=== PATIENT | female | born 2005 | race African-American/Black ===

== ENCOUNTER 2024-05-04 10:01 | Inpatient (IN) | payer OTHER, MEDICAID ==
[2024-05-04] VITALS (22 sets, daily range): BP systolic 104–122; BP diastolic 56–82; PULSE 120–138; RESP 17–31; TEMP 35.9–37.3; O2SAT 93–100
[~2024-05-04] VITALS: Ht 154.9 cm; Wt 56.7 kg
[2024-05-04] MEDS: SODIUM CHLORIDE 0.9% 1,000 ML IV ONE ×2 (10:39→11:45)
[2024-05-04 11:12] LABS: BG BASE EXCESS -30.9 mmol/L (-2.0-3.0); BG CARBOXYHEMOGLOBIN 0.5 % (0.5-1.5); BG DEOXYHEMOGLOBIN 1.7 % (0.0-5.0); BG HCO3 ACT 2.2 mmol/L (21.0-28.0); BG METHEMOGLOBIN 0.4 % (0.5-1.5); BG OXYGEN SATURATION 98.3 % (94.0-98.0); BG OXYHEMOGLOBIN 97.4 % (94.0-98.0); BG PCO2 13.6 mmHg (32.0-45.0); BG PH 6.833 (7.350-7.450); BG PO2 142.1 mmHg (83.0-108.0); BG SAMPLE SITE RIGHT RADIAL; BG TOTAL HEMOGLOBIN 14.7 g/dL (12.0-16.0); BG VENT MODE ROOM AIR
[2024-05-04 11:20] LABS: CHLORIDE 85 mEq/L (98-107)
[2024-05-04 11:22] LABS: HEMATOCRIT. 51.3 % (36.0-48.0); HEMOGLOBIN. 13.3 g/dL (12.0-16.0); MEAN CORPUSCULAR HEMOGLOBIN 27.6 pg (28.0-32.0); MEAN CORPUSCULAR HGB CONC 25.9 g/dL (31.0-37.0); MEAN CORPUSCULAR VOLUME 106.4 fL (81.0-99.0); MEAN PLATELET VOLUME 10.9 fl (7.4-10.4); PLATELET 290 x1000/uL (130-400); RED BLOOD CELL COUNT 4.82 mill/uL (4.2-5.4); RED CELL DISTRIBUTION WIDTH 16.2 % (11.6-14.6); WHITE BLOOD COUNT 33.7 x1000/uL (4.5-11.0)
[2024-05-04 11:25] LABS: DIFFERENTIAL COMMENT 1
[2024-05-04] MEDS ORDERED: VANCOMYCIN 1G PREMIX 200 ML IV ONE (11:30)
[2024-05-04] MEDS: SODIUM CHLORIDE 0.9% (SEPSIS BOLUS) IV ONE (11:45)
[2024-05-04 11:51] LABS: HCG SCREEN NEGATIVE
[2024-05-04 12:08] LABS: SODIUM 122 mEq/L (136-145)
[2024-05-04 12:09] LABS: BETA HYDROXYBUTYRATE 12.6 mMol/L (0.0-0.3); CALCIUM 9.4 mg/dL (8.7-10.4); CREATININE 2.6 mg/dL (0.6-1.0); TROPONIN I HIGH SENSITIVITY 8 ng/L (3.0-34); UREA NITROGEN BLOOD 26 mg/dL (9-23)
[2024-05-04 12:11] LABS: POTASSIUM 7.3 mEq/L (3.5-5.1)
[2024-05-04 12:12] LABS: CARBON DIOXIDE < 10 mEq/L (21-32); GLUCOSE 954 mg/dL (70-105)
[2024-05-04] MEDS ORDERED: BLOOD SUGAR DIAGNOSTIC STRIP TEST PRN (12:30)
[2024-05-04] MEDS ORDERED: DEXTROSE 50% WATER 50ML SYRINGE IV PRN (12:30)
[2024-05-04] MEDS: BLOOD SUGAR DIAGNOSTIC STRIP TEST SCH ×2 (12:30→18:20)
[2024-05-04] MEDS: PIPERACILLIN/TAZO 3.375G/50ML 50 ML IV ONE (12:42)
[2024-05-04] MEDS ORDERED: INSULIN REGULAR 100U/100ML PMX 100 ML IV SCH (13:15)
[2024-05-04 13:27] LABS: ANISOCYTOSIS 1+; PLATELET ESTIMATE NORMAL
[2024-05-04] MEDS: SODIUM BICARBONATE 100 MEQ in SODIUM CHLORIDE 0.45% 900 ML IV SCH (13:35)
[2024-05-04] MEDS: INSULIN REGULAR (HUMULIN R) 1000UNITS/10ML VIAL IV NR (13:50)
[2024-05-04] MEDS: SODIUM BICARBONATE 8.4% 50MEQ/50ML SYR IV NR (13:51)
[2024-05-04] MEDS: INSULIN REGULAR 100U/100ML PMX 100 ML IV SCH (14:27)
[2024-05-04] MEDS: DEXT 5%/0.9% NACL 1,000 ML IV SCH (14:28)
[2024-05-04] MEDS ORDERED: DOCUSATE SODIUM 100MG CAPSULE PO PRN (16:00)
[2024-05-04] MEDS ORDERED: ACETAMINOPHEN 325MG TABLET PO PRN (16:00)
[2024-05-04] MEDS ORDERED: IPRATROPIUM/ALBUTEROL 0.5-3(2.5)MG/3ML NEB HHN PRN (16:00)
[2024-05-04] MEDS: SODIUM CHLORIDE 0.9% 1,000 ML IV SCH (16:50)
[2024-05-04] MEDS: VANCOMYCIN 1.5GM/250ML IV NR (16:51)
[2024-05-04 18:49] LABS: BG BASE EXCESS -19.1 mmol/L (-2.0-3.0); BG CARBOXYHEMOGLOBIN 0.3 % (0.5-1.5); BG DEOXYHEMOGLOBIN 2.2 % (0.0-5.0); BG FRACTION INSPIRED OXYGEN 21; BG HCO3 ACT 6.1 mmol/L (21.0-28.0); BG METHEMOGLOBIN 0.3 % (0.5-1.5); BG OXYGEN SATURATION 97.8 % (94.0-98.0); BG OXYHEMOGLOBIN 97.2 % (94.0-98.0); BG PCO2 14.7 mmHg (32.0-45.0); BG PH 7.234 (7.350-7.450); BG PO2 96.8 mmHg (83.0-108.0); BG SAMPLE SITE RIGHT RADIAL; BG TOTAL HEMOGLOBIN 11.7 g/dL (12.0-16.0); BG VENT MODE ROOM AIR
[2024-05-04 18:53] LABS: CHLORIDE 105 mEq/L (98-107); POTASSIUM 4.7 mEq/L (3.5-5.1); SODIUM 138 mEq/L (136-145)
[2024-05-04 18:54] LABS: CALCIUM 8.1 mg/dL (8.7-10.4)
[2024-05-04 18:59] LABS: UREA NITROGEN BLOOD 26 mg/dL (9-23)
[2024-05-04 19:01] LABS: PHOSPHORUS 3.1 mg/dL (2.5-4.9)
[2024-05-04 19:04] LABS: CARBON DIOXIDE < 10 mEq/L (21-32); CREATININE 1.8 mg/dL (0.6-1.0); GLUCOSE 405 mg/dL (70-105)
[2024-05-04 19:47] LABS: BASOPHILS % 1.3 % (0.0-2.0); DIFFERENTIAL COMMENT 0; EOSINOPHILS % 0.7 % (0.0-5.0); HEMATOCRIT. 39.4 % (36.0-48.0); HEMOGLOBIN. 12.3 g/dL (12.0-16.0); LYMPHOCYTES % 21.3 % (20.0-50.0); MEAN CORPUSCULAR HEMOGLOBIN 27.7 pg (28.0-32.0); MEAN CORPUSCULAR HGB CONC 31.2 g/dL (31.0-37.0); MEAN CORPUSCULAR VOLUME 88.8 fL (81.0-99.0); MEAN PLATELET VOLUME 10.4 fl (7.4-10.4); MONOCYTES % 5.7 % (2.0-8.0); PLATELET 193 x1000/uL (130-400); RED BLOOD CELL COUNT 4.43 mill/uL (4.2-5.4); RED CELL DISTRIBUTION WIDTH 14.8 % (11.6-14.6); WHITE BLOOD COUNT 15.6 x1000/uL (4.5-11.0)
[2024-05-04 20:30] LABS: CHLORIDE 106 mEq/L (98-107); SODIUM 139 mEq/L (136-145)
[2024-05-04 20:31] LABS: CALCIUM 8.4 mg/dL (8.7-10.4)
[2024-05-04 20:36] LABS: CREATININE 1.9 mg/dL (0.6-1.0); GLUCOSE 216 mg/dL (70-105); UREA NITROGEN BLOOD 22 mg/dL (9-23)
[2024-05-04 20:38] LABS: PHOSPHORUS 1.9 mg/dL (2.5-4.9)
[2024-05-04] MEDS: PIPERACILLIN/TAZO 3.375G/50ML IV SCH (20:51)
[2024-05-04 20:59] LABS: CARBON DIOXIDE < 10 mEq/L (21-32)
[2024-05-04] MEDS ORDERED: PIPERACILLIN/TAZO 3.375G/100ML 100 ML IV SCH (21:00)
[2024-05-04] MEDS: KCL 20MEQ/100ML PREMIX 100 ML IV PRN (23:11)
[2024-05-04] MEDS: MAGNESIUM 2 G PREMIX 50 ML IV PRN (23:12)
[2024-05-05] VITALS (53 sets, daily range): BP systolic 107–151; BP diastolic 61–107; PULSE 108–124; RESP 13–32; TEMP 37.1–37.3; O2SAT 97–100
[2024-05-05] MEDS: SODIUM PHOSPHATE 15 MMOL in SODIUM CHLORIDE 0.9% 245 ML IV PRN (00:43)
[2024-05-05 04:31] LABS: CHLORIDE 112 mEq/L (98-107); POTASSIUM 4.2 mEq/L (3.5-5.1); SODIUM 141 mEq/L (136-145)
[2024-05-05 04:32] LABS: CALCIUM 7.9 mg/dL (8.7-10.4); CARBON DIOXIDE 15 mEq/L (21-32)
[2024-05-05 04:37] LABS: CREATININE 1.8 mg/dL (0.6-1.0); GLUCOSE 199 mg/dL (70-105); UREA NITROGEN BLOOD 24 mg/dL (9-23)
[2024-05-05 04:39] LABS: PHOSPHORUS 1.9 mg/dL (2.5-4.9)
[2024-05-05 04:47] LABS: CLARITY URINE CLEAR (CLEAR); COLOR URINE YELLOW (YELLOW); GLUCOSE URINE 3+ (NEGATIVE); KETONES URINE 4+ (NEGATIVE); LEUKOCYTE ESTERASE URINE TRACE (NEGATIVE); NITRITE URINE NEGATIVE (NEGATIVE); OCCULT BLOOD URINE 2+ (NEGATIVE); PH URINE 5.5 (4.5-8.0); PROTEIN URINE 2+ (NEGATIVE); UROBILINOGEN URINE 0.2 E.U./dL (0.2-1.0)
[2024-05-05 05:17] LABS: *AMPHETAMINES SCREEN URINE NEGATIVE (NEGATIVE); *BENZODIAZEPINES SCREEN URINE NEGATIVE (NEGATIVE)
[2024-05-05 05:18] LABS: *BARBITURATES SCREEN URINE NEGATIVE (NEGATIVE); *COCAINE SCREEN URINE NEGATIVE (NEGATIVE); CANNABINOID URINE SCREEN NEGATIVE (NEGATIVE); METHADONE URINE SCREEN NEGATIVE (NEGATIVE); OPIATES URINE SCREEN NEGATIVE (NEGATIVE); PHENCYCLIDINE URINE SCREEN NEGATIVE (NEGATIVE)
[2024-05-05 05:19] LABS: ECSTASY MDMA SCREEN URINE NEGATIVE (NEGATIVE)
[2024-05-05 07:05] LABS: SQUAMOUS EPITHELIAL CELL URINE FEW /lpf (RARE/1+)
[2024-05-05 07:07] LABS: RBC URINE 0-2 /hpf (0-2)
[2024-05-05 07:09] LABS: AMORPHOUS SEDIMENT URINE 1+ /lpf
[2024-05-05 07:10] LABS: BACTERIA URINE TRACE
[2024-05-05] MEDS ORDERED: LIDOCAINE HCL 1% 10 MG/ML 10ML VIAL ONE (08:04)
[2024-05-05 10:48] LABS: POTASSIUM 4.1 mEq/L (3.5-5.1)
[2024-05-05 10:50] LABS: CALCIUM 7.8 mg/dL (8.7-10.4)
[2024-05-05 10:54] LABS: CREATININE 1.9 mg/dL (0.6-1.0)
[2024-05-05] MEDS: FLUCONAZOLE 150MG TABLET PO NR (11:30)
[2024-05-05] MEDS: ACETAMINOPHEN 325MG TABLET PO PRN (11:31)
[2024-05-05] MEDS: VANCOMYCIN 1G PREMIX 200 ML IV SCH (11:31)
[2024-05-05 19:06] LABS: CALCIUM 8.2 mg/dL (8.7-10.4)
[2024-05-05] MEDS: KCL 10MEQ/50ML PREMIX 50 ML IV SCH (20:21)
[2024-05-05 23:08] LABS: CHLORIDE 116 mEq/L (98-107); POTASSIUM 3.4 mEq/L (3.5-5.1); SODIUM 142 mEq/L (136-145)
[2024-05-05 23:09] LABS: CALCIUM 8.2 mg/dL (8.7-10.4); CARBON DIOXIDE 15 mEq/L (21-32)
[2024-05-05 23:14] LABS: CREATININE 1.8 mg/dL (0.6-1.0); GLUCOSE 169 mg/dL (70-105); UREA NITROGEN BLOOD 22 mg/dL (9-23)
[2024-05-05 23:16] LABS: PHOSPHORUS 1.3 mg/dL (2.5-4.9)
[2024-05-05 23:27] LABS: BASOPHILS % 0.4 % (0.0-2.0); EOSINOPHILS % 0.2 % (0.0-5.0); HEMATOCRIT. 33.6 % (36.0-48.0); LYMPHOCYTES % 21.7 % (20.0-50.0); MEAN CORPUSCULAR HEMOGLOBIN 27.3 pg (28.0-32.0); MEAN CORPUSCULAR HGB CONC 32.7 g/dL (31.0-37.0); MEAN CORPUSCULAR VOLUME 83.6 fL (81.0-99.0); MEAN PLATELET VOLUME 9.6 fl (7.4-10.4); MONOCYTES % 6.9 % (2.0-8.0); NEUTROPHILS % 70.8 % (40.0-76.0); PLATELET 146 x1000/uL (130-400); RED BLOOD CELL COUNT 4.02 mill/uL (4.2-5.4); RED CELL DISTRIBUTION WIDTH 15.8 % (11.6-14.6); WHITE BLOOD COUNT 6.2 x1000/uL (4.5-11.0)
[2024-05-06] VITALS (33 sets, daily range): BP systolic 113–145; BP diastolic 90–122; PULSE 97–129; RESP 14–27; TEMP 36.7–37.4; O2SAT 96–100
[2024-05-06] MEDS: ONDANSETRON HCL 4MG/2ML INJ IV PRN (00:15)
[2024-05-06] MEDS: POTASSIUM CHLORIDE 40 MEQ in SODIUM CHLORIDE 0.9% 230 ML IV PRN (00:15)
[2024-05-06] MEDS: POTASSIUM CHLORIDE 20MEQ TABLET SR PO SCH (09:11)
[2024-05-06] MEDS ORDERED: NALOXONE HCL 0.4MG/ML VIAL IV PRN (10:15)
[2024-05-06] MEDS: HYDROCODONE/ACETAMINOPHEN 5/325MG TABLET PO PRN (10:33)
[2024-05-06 11:32] LABS: CARBON DIOXIDE 12 mEq/L (21-32); CHLORIDE 115 mEq/L (98-107); POTASSIUM 4.2 mEq/L (3.5-5.1); SODIUM 138 mEq/L (136-145)
[2024-05-06 11:37] LABS: CREATININE 1.7 mg/dL (0.6-1.0)
[2024-05-06 11:38] LABS: GLUCOSE 354 mg/dL (70-105); UREA NITROGEN BLOOD 21 mg/dL (9-23)
[2024-05-06 11:40] LABS: PHOSPHORUS 1.9 mg/dL (2.5-4.9)
[2024-05-06 11:51] LABS: BASOPHILS % 0.8 % (0.0-2.0); EOSINOPHILS % 0.1 % (0.0-5.0); HEMATOCRIT. 34.9 % (36.0-48.0); LYMPHOCYTES % 40.7 % (20.0-50.0); MEAN CORPUSCULAR HEMOGLOBIN 27.5 pg (28.0-32.0); MEAN CORPUSCULAR HGB CONC 31.9 g/dL (31.0-37.0); MEAN CORPUSCULAR VOLUME 86.1 fL (81.0-99.0); NEUTROPHILS % 51.4 % (40.0-76.0); PLATELET 138 x1000/uL (130-400); RED BLOOD CELL COUNT 4.05 mill/uL (4.2-5.4); RED CELL DISTRIBUTION WIDTH 16.3 % (11.6-14.6); WHITE BLOOD COUNT 4.4 x1000/uL (4.5-11.0)
[2024-05-06 11:52] LABS: HEMOGLOBIN. 11.1 g/dL (12.0-16.0)
[2024-05-06] MEDS: CLONIDINE 0.1MG TABLET PO PRN (14:28)
[2024-05-06 22:07] LABS: POTASSIUM 3.8 mEq/L (3.5-5.1)
[2024-05-06 22:08] LABS: CALCIUM 7.8 mg/dL (8.7-10.4)
[2024-05-06 22:13] LABS: CREATININE 1.6 mg/dL (0.6-1.0)
[2024-05-06] MEDS ORDERED: DEXTROSE 50% WATER 50ML SYRINGE IV PRN (22:45)
[2024-05-06] MEDS ORDERED: INSULIN LISPRO 100 UNITS/ML SUBCUT NR (22:45)
[2024-05-06] MEDS: INSULIN GLARGINE 100 UNITS/ML SUBCUT NR (23:20)
[2024-05-07] VITALS (24 sets, daily range): BP systolic 108–139; BP diastolic 76–114; PULSE 98–126; RESP 10–28; TEMP 36.7–37.1; O2SAT 97–100
[2024-05-07] MEDS: MAGNESIUM 2 G PREMIX 50 ML IV NR (00:04)
[2024-05-07] MEDS: BLOOD SUGAR DIAGNOSTIC STRIP TEST ONE (00:41)
[2024-05-07] MEDS: INSULIN LISPRO (HIGH DOSE) 100 UNITS/ML SUBCUT NR (00:48)
[2024-05-07] MEDS: POTASSIUM PHOSPHATE 30 MMOL in SODIUM CHLORIDE 0.9% 490 ML IV NR (01:10)
[2024-05-07 07:16] LABS: BASOPHILS % 0.7 % (0.0-2.0); EOSINOPHILS % 0.6 % (0.0-5.0); HEMATOCRIT. 41.5 % (36.0-48.0); LYMPHOCYTES % 38.9 % (20.0-50.0); MEAN CORPUSCULAR HEMOGLOBIN 27.7 pg (28.0-32.0); MEAN CORPUSCULAR HGB CONC 31.3 g/dL (31.0-37.0); MEAN CORPUSCULAR VOLUME 88.5 fL (81.0-99.0); MEAN PLATELET VOLUME 10.2 fl (7.4-10.4); MONOCYTES % 7.4 % (2.0-8.0); NEUTROPHILS % 52.4 % (40.0-76.0); PLATELET 141 x1000/uL (130-400); RED BLOOD CELL COUNT 4.69 mill/uL (4.2-5.4); RED CELL DISTRIBUTION WIDTH 16.7 % (11.6-14.6); WHITE BLOOD COUNT 6.4 x1000/uL (4.5-11.0)
[2024-05-07 07:43] LABS: CARBON DIOXIDE 14 mEq/L (21-32); CHLORIDE 114 mEq/L (98-107); POTASSIUM 4.4 mEq/L (3.5-5.1); SODIUM 141 mEq/L (136-145)
[2024-05-07 07:45] LABS: CALCIUM 8.4 mg/dL (8.7-10.4)
[2024-05-07 07:49] LABS: CREATININE 1.6 mg/dL (0.6-1.0); GLUCOSE 216 mg/dL (70-105)
[2024-05-07 07:50] LABS: UREA NITROGEN BLOOD 16 mg/dL (9-23)
[2024-05-07] MEDS: BLOOD SUGAR DIAGNOSTIC STRIP TEST SCH (08:05)
[2024-05-07] MEDS: INSULIN LISPRO 100 UNITS/ML SUBCUT SCH (08:33)
[2024-05-07] MEDS: FUROSEMIDE 40MG/4ML VIAL IVP NR (10:34)
[2024-05-07] MEDS: INSULIN GLARGINE 100 UNITS/ML SUBCUT SCH (10:35)
[2024-05-07] MEDS: SODIUM BICARBONATE 650MG TABLET PO SCH (13:54)
[2024-05-08] VITALS (25 sets, daily range): BP systolic 105–139; BP diastolic 65–105; PULSE 96–120; RESP 10–21; TEMP 36.7–37.6; O2SAT 97–100
[2024-05-08 08:15] LABS: BASOPHILS % 0.5 % (0.0-2.0); EOSINOPHILS % 1.3 % (0.0-5.0); HEMATOCRIT. 39.1 % (36.0-48.0); HEMOGLOBIN. 12.6 g/dL (12.0-16.0); LYMPHOCYTES % 38.3 % (20.0-50.0); MEAN CORPUSCULAR HEMOGLOBIN 27.5 pg (28.0-32.0); MEAN CORPUSCULAR HGB CONC 32.3 g/dL (31.0-37.0); MEAN CORPUSCULAR VOLUME 85.1 fL (81.0-99.0); MONOCYTES % 8.8 % (2.0-8.0); NEUTROPHILS % 51.1 % (40.0-76.0); PLATELET 142 x1000/uL (130-400); RED BLOOD CELL COUNT 4.59 mill/uL (4.2-5.4); RED CELL DISTRIBUTION WIDTH 16.2 % (11.6-14.6)
[2024-05-08 08:24] LABS: POTASSIUM 3.4 mEq/L (3.5-5.1)
[2024-05-08 08:25] LABS: CALCIUM 8.7 mg/dL (8.7-10.4)
[2024-05-08 08:30] LABS: CREATININE 1.7 mg/dL (0.6-1.0)
[2024-05-08] MEDS ORDERED: INSULIN GLARGINE 100 UNITS/ML SUBCUT SCH (10:00)
[2024-05-08] MEDS: VANCOMYCIN 1.25GM/250ML IV SCH (10:04)
[2024-05-08] MEDS: POTASSIUM CHLORIDE 20MEQ/PACKET PO NR (10:05)
[2024-05-08] MEDS: AMLODIPINE 2.5MG TABLET PO SCH (10:05)
[2024-05-08] MEDS: INSULIN REGULAR (HUMULIN R) 1000UNITS/10ML VIAL IV NR (10:06)
[2024-05-08] MEDS: INSULIN GLARGINE 100 UNITS/ML SUBCUT SCH (10:06)
[2024-05-08] MEDS ORDERED: KCL 20MEQ/100ML PREMIX 100 ML IV SCH (10:30)
[2024-05-08 10:51] LABS: ALANINE AMINOTRANSFERASE 109 IU/L (10-49); ALBUMIN 3.1 g/dL (3.2-4.8); ASPARTATE AMINOTRANSFERASE 101 IU/L (<34); BILIRUBIN DIRECT 0.3 mg/dL (<=3.0); PHOSPHORUS 2.8 mg/dL (2.5-4.9); PROTEIN TOTAL 5.8 g/dL (6.0-8.3)
[2024-05-08 10:53] LABS: THYROID STIMULATING HORMONE 1.49 uIU/mL (0.55-4.78)
[2024-05-08] MEDS: POTASSIUM CHLORIDE 40MEQ in DEXT 5% WATER 250ML IV NR (13:05)
[2024-05-08] MEDS: MAGNESIUM 2 G PREMIX 50 ML IV NR (13:05)
[2024-05-08] MEDS: INSULIN LISPRO 100 UNITS/ML SUBCUT SCH (13:06)
[2024-05-08 21:48] LABS: HEPATITIS B SURFACE ANTIGEN NEGATIVE (Negative)
[2024-05-08 22:09] LABS: HEPATITIS A AB IGM NEGATIVE (Negative)
[2024-05-08 22:10] LABS: HEPATITIS B CORE AB IGM NEGATIVE (Negative); HEPATITIS C AB NON REACTIVE (Neg) (Negative)
[2024-05-09] VITALS (12 sets, daily range): BP systolic 115–135; BP diastolic 84–103; PULSE 90–109; RESP 8–21; TEMP 36.7–37.3; O2SAT 95–100
[2024-05-09 07:35] LABS: BASOPHILS % 0.4 % (0.0-2.0); EOSINOPHILS % 2.6 % (0.0-5.0); HEMATOCRIT. 40.7 % (36.0-48.0); LYMPHOCYTES % 34.5 % (20.0-50.0); MEAN CORPUSCULAR HEMOGLOBIN 27.4 pg (28.0-32.0); MEAN CORPUSCULAR HGB CONC 31.9 g/dL (31.0-37.0); MEAN CORPUSCULAR VOLUME 85.7 fL (81.0-99.0); MEAN PLATELET VOLUME 9.7 fl (7.4-10.4); MONOCYTES % 10.8 % (2.0-8.0); NEUTROPHILS % 51.7 % (40.0-76.0); PLATELET 178 x1000/uL (130-400); RED BLOOD CELL COUNT 4.75 mill/uL (4.2-5.4); RED CELL DISTRIBUTION WIDTH 16.1 % (11.6-14.6); WHITE BLOOD COUNT 6.6 x1000/uL (4.5-11.0)
[2024-05-09 07:59] LABS: CHLORIDE 107 mEq/L (98-107); SODIUM 138 mEq/L (136-145)
[2024-05-09 08:00] LABS: CALCIUM 9.1 mg/dL (8.7-10.4); CARBON DIOXIDE 22 mEq/L (21-32)
[2024-05-09 08:05] LABS: CREATININE 1.4 mg/dL (0.6-1.0); GLUCOSE 123 mg/dL (70-105)
[2024-05-09 08:06] LABS: UREA NITROGEN BLOOD 13 mg/dL (9-23)
[2024-05-09 08:47] LABS: POTASSIUM 2.7 mEq/L (3.5-5.1)
[2024-05-09] MEDS: POTASSIUM CHLORIDE 20MEQ/PACKET PO NR (09:15)
[2024-05-09] MEDS: KCL 20MEQ/100ML PREMIX 100 ML IV NR ×2 (11:10→13:29)
[2024-05-09 18:25] LABS: IRON 41 ug/dL (50-170)
[2024-05-09 18:27] LABS: ALANINE AMINOTRANSFERASE 81 IU/L (10-49); ALBUMIN 3.5 g/dL (3.2-4.8); ASPARTATE AMINOTRANSFERASE 65 IU/L (<34); CREATINE KINASE 51 IU/L (34-145)
[2024-05-09 18:28] LABS: BILIRUBIN DIRECT 0.2 mg/dL (<=3.0); BILIRUBIN TOTAL 0.7 mg/dL (0.1-1.0); PROTEIN TOTAL 6.2 g/dL (6.0-8.3); TOTAL IRON BINDING CAPACITY 363 ug/dl (250-425)
[2024-05-10] VITALS: BP 125/83; PULSE 97; RESP 22; TEMP 36.6; O2SAT 100
[2024-05-10 04:00] VITALS: BP 94/56; PULSE 70; RESP 13; TEMP 36.6; O2SAT 96
[2024-05-10] MEDS: INSULIN LISPRO (LOW DOSE) 100 UNITS/ML SUBCUT SCH (07:20)
[2024-05-10 07:43] LABS: POTASSIUM 3.4 mEq/L (3.5-5.1)
[2024-05-10 07:44] LABS: CALCIUM 8.6 mg/dL (8.7-10.4)
[2024-05-10 07:49] LABS: CREATININE 1.4 mg/dL (0.6-1.0)
[2024-05-10 08:00] VITALS: BP 118/85; PULSE 100; RESP 20; TEMP 36.6; O2SAT 100
[2024-05-10 09:26] LABS: BASOPHILS % 0.6 % (0.0-2.0); EOSINOPHILS % 2.1 % (0.0-5.0); LYMPHOCYTES % 40.5 % (20.0-50.0); MEAN CORPUSCULAR HEMOGLOBIN 27.5 pg (28.0-32.0); MEAN CORPUSCULAR HGB CONC 32.1 g/dL (31.0-37.0); MEAN CORPUSCULAR VOLUME 85.7 fL (81.0-99.0); MONOCYTES % 14.4 % (2.0-8.0); NEUTROPHILS % 42.4 % (40.0-76.0); PLATELET 168 x1000/uL (130-400); RED CELL DISTRIBUTION WIDTH 15.7 % (11.6-14.6); WHITE BLOOD COUNT 5.5 x1000/uL (4.5-11.0)
[2024-05-10 09:30] LABS: HEMOGLOBIN. 10.7 g/dL (12.0-16.0)
[2024-05-10 09:31] LABS: HEMATOCRIT. 33.5 % (36.0-48.0)
[2024-05-10] MEDS ORDERED: POTASSIUM CHLORIDE 20MEQ TABLET SR PO ONE (11:15)
[2024-05-10] MEDS ORDERED: INSLIS SUBCUT (11:23)
[2024-05-10] MEDS ORDERED: LANTUSUD SUBCUT (11:23)
[2024-05-10] MEDS: INSULIN LISPRO 100 UNITS/ML SUBCUT SCH (11:50)
[2024-05-10] MEDS ORDERED: INSULIN LISPRO 100 UNITS/ML SUBCUT SCH (11:50)
[2024-05-10 12:00] VITALS: BP 110/71; PULSE 75; RESP 18; TEMP 36.8; O2SAT 97
[2024-05-10] MEDS ORDERED: SODI650T MT (12:19)
[2024-05-10] MEDS: POTASSIUM CHLORIDE 20MEQ TABLET SR PO SCH (13:30)
[2024-05-10 14:59] LABS: INFLUENZA TYPE A Presumptive Negative (Pres. Neg.)
[2024-05-10 15:00] LABS: INFLUENZA TYPE B Presumptive Negative (Pres. Neg.)
[2024-05-10 16:00] VITALS: BP 129/94; PULSE 98; RESP 14; TEMP 36.7; O2SAT 100
[2024-05-10] MEDS: POTASSIUM CHLORIDE 40 MEQ in DEXT 5% WATER 230 ML IV NR (16:48)
[2024-05-10 17:25] VITALS: BP 129/94; PULSE 98; TEMP 98; O2SAT 91
== END 2024-05-10 20:36 | disposition home or self-care (01) | DRG 871 ==
LOC: ER 10:01 → CVICU 12:38 → EDBEDREQTM 12:47 → EDBEDREQ 12:47 → 3WST 05-09 08:24
PROVIDERS: ADMIT Family Medicine Adult Medicine; ATTEND Family Medicine Adult Medicine
PROC: 02HV33Z Insertion of Infusion Device into Superior Vena Cava, Percutaneous Approach (ICD-10-PCS; principal; 2024-05-05)
PROC: B548ZZA Ultrasonography of Superior Vena Cava, Guidance (ICD-10-PCS; 2024-05-05)
DX: A41.9 Sepsis, unspecified organism (principal); E11.10 Type 2 diabetes mellitus with ketoacidosis without coma; G93.41 Metabolic encephalopathy; N17.9 Acute kidney failure, unspecified; E87.1 Hypo-osmolality and hyponatremia; R18.8 Other ascites; J98.11 Atelectasis; D50.9 Iron deficiency anemia, unspecified; K76.9 Liver disease, unspecified; E87.5 Hyperkalemia; E86.0 Dehydration; R06.82 Tachypnea, not elsewhere classified; R80.9 Proteinuria, unspecified; N18.2 Chronic kidney disease, stage 2 (mild); I49.3 Ventricular premature depolarization; E83.39 Other disorders of phosphorus metabolism; E83.42 Hypomagnesemia; R16.0 Hepatomegaly, not elsewhere classified; E87.6 Hypokalemia; E83.51 Hypocalcemia; R74.01 Elevation of levels of liver transaminase levels; F10.90 Alcohol use, unspecified, uncomplicated; F12.90 Cannabis use, unspecified, uncomplicated; Z79.4 Long term (current) use of insulin
CPT/HCPCS: 36415; 36573; 36600; 71045; 74176; 76700; 76770; 76856; 80048; 80051; 80076; 80202; 80305; 81003; 82010; 82375; 82390; 82550; 82728; 82805; 82962; 83036; 83519; 83540; 83550; 83605; 83735; 83930; 84100; 84145; 84439; 84443; 84481; 84484; 84703; 85025; 86038; 86337; 86645; 86705; 86709; 87070; 87340; 87430; 87804; 93005; 93306; 97161; 99291; A4606; C1725; J1815; J1940; J2003; J2405; J2543; J3370; J3475; J3480; J3490; J7030; J7040; J7050; J7060